=== PATIENT | male | born 1955 | race Hispanic/Latino ===

== ENCOUNTER 2021-07-02 11:44 | Emergency (ER) | payer SELFPAY ==
--- NOTE | 2021-07-02 12:04 | Emergency Department Report ---
- General Stated Complaint: NOT SLEEPING/GENERAL ILLNESS Time Seen by Provider: 07/02/21 12:04 - History of Present Illness Initial Comments: Patient presented secondary cough and congestion. He has been having symptoms of a respiratory nature for the last week or so. He has had difficulty sleeping for the last 3 days. He states that he just keeps coughing. He normally smokes 3 packs of cigarettes a day. He states that he is aware that is not healthy but has no intention of quitting. I did discuss this with him. He does admit that he has not smoked in the last 3 days due to his respiratory symptoms. He came in because of this. He has no chest pain. Has no vomiting or diarrhea. He states that he has been coughing and producing a yellowish phlegm. He did get a flu shot. He states he has had both santiago shots. He does not think this is COVID. He has had no known exposure to coronavirus. Patient states he is never been intubated before. Has never had to be hospitalized due to his lung condition. - Related Data Previous Rx's Medication Instructions Recorded Last Taken Type Albuterol Sulfate [Proventil Hfa] 6.7 gm IH 4XD #1 inh 07/02/21 Unknown Rx Benzonatate [Tessalon Perles] 100 mg PO Q8HR #21 cap 07/02/21 Unknown Rx Allergies Allergy/AdvReac Type Severity Reaction Status Date / Time No Known Allergies Allergy Unverified 05/17/18 00:48 ED Review of Systems ROS: Stated complaint: NOT SLEEPING/GENERAL ILLNESS Other details as noted in HPI Comment: All other systems reviewed and negative Constitutional: fever (Subjective) Eyes: denies: eye pain ENT: denies: throat pain Respiratory: see HPI, cough Cardiovascular: denies: chest pain Endocrine: denies: unexplained weight loss Gastrointestinal: denies: abdominal pain Genitourinary: denies: dysuria Musculoskeletal: arthralgia, myalgia Skin: denies: rash Neurological: denies: headache Hematological/Lymphatic: denies: easy bruising ED Past Medical Hx - Past Medical History Additional medical history: Tobacco abuse - Family History Family history: no significant - Social History Smoking Status: Heavy Tobacco Smoker (2 packs per day) Substance Use Type: None (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 He does improve with deep breath. He does not appear to be in any respiratory distress) General appearance: alert, in no apparent distress - Head Head exam: Present: atraumatic, normocephalic - Eye Eye exam: Present: normal appearance, EOMI - ENT ENT exam: Present: normal orophraynx, normal external ear exam - Neck Neck exam: Present: normal inspection. Absent: meningismus - Respiratory Respiratory exam: Present: normal lung sounds bilaterally. Absent: respiratory distress - Cardiovascular Cardiovascular Exam: Present: regular rate, irregular rhythm - GI/Abdominal GI/Abdominal exam: Present: soft - Extremities Exam Extremities exam: Present: normal capillary refill. Absent: calf tenderness - Back Exam Back exam: Absent: CVA tenderness (R), CVA tenderness (L) - Neurological Exam Neurological exam: Present: alert, oriented X3, CN II-XII intact, normal gait. Absent: motor sensory deficit - Psychiatric Psychiatric exam: Present: normal affect, normal mood - Skin Skin exam: Present: warm, dry ED Course Vital Signs 07/02/21 12:03 Temperature 99.9 F H Pulse Rate 93 H Respiratory 20 Rate Blood Pressure 131/79 [Right] O2 Sat by Pulse 93 Oximetry - Reevaluation(s) Reevaluation #1: 07/02/21 12:04 EKG ordered. Reevaluation #2: 07/02/21 13:23 EKG was noted and the patient was discharged. Family or friend became very irate that the patient was being discharged. We tried to explain our current findings. He stormed off. ED Medical Decision Making - EKG Data -: EKG Interpreted by Me - EKG Data 07/02/21 13:23 EKG shows normal sinus rhythm with normal intervals. There is no ectopy. There is no ST or T wave change. QRS and QT corrected are both normal. There is no old EKG for comparison. - Medical Decision Making Patient presents with upper respiratory symptoms. He was found to be hypoxic but this improved with deep breath. Partially the hypoxia was related to his significant tobacco abuse. We did discuss tobacco cessation x3 minutes. Patient does not have adventitious breath sounds suggestive of pneumonia or pneumothorax. He was vaccinated against coronavirus but still could have COVID. This was explained. There was no indication for admission as he is not profoundly hypoxic and does not require oxygen therapy. We will prescribe medication for him and have him isolate at home. Critical Care Time: No Critical care attestation.: If time is entered above; I have spent that time in minutes in the direct care of this critically ill patient, excluding procedure time. ED Disposition Clinical Impression: Viral URI, Tobacco abuse Disposition: HOME / SELF CARE / HOMELESS Is pt being admited?: No Condition: Stable Instructions: Cool Mist Vaporizer, Cough, Adult, [id number], Viral Respiratory Infection, [id number], Steps to Quit Smoking Additional Instructions: DRINK WATER. STOP SMOKING. SEE YOUR DOCTOR FOR RECHECK. Prescriptions: Albuterol Sulfate [Proventil Hfa] 6.7 gm IH 4XD #1 inh Benzonatate [Tessalon Perles] 100 mg PO Q8HR #21 cap Referrals: PRIMARY CARE, [Primary Care Provider] - 3-5 Days
[2021-07-02 12:05] VITALS: BP 131/79
== END 2021-07-02 13:30 | disposition home or self-care (01) ==
LOC: ED 11:44
DX: J06.9 Acute upper respiratory infection, unspecified (principal); F17.200 Nicotine dependence, unspecified, uncomplicated
CPT/HCPCS: 93005; 93010; 99281